=== PATIENT | male | born 1975 | race American Indian/Alaskan Native ===

== ENCOUNTER 2016-11-30 02:01 | Emergency (ER) | payer BC ==
[2016-11-30 03:05] LABS: Basophils % (Auto) 0.6 % (0.0-1.8); Eosinophils % (Auto) 6.4 % (0.0-4.3); Hematocrit 40.9 % (35.5-45.6); Hemoglobin 13.7 gm/dl (11.8-15.2); Mean Corpuscular HGB Conc 34 % (32-34); Mean Corpuscular Hemoglobin 29 pg (28-32); Mean Corpuscular Volume 86 fl (84-94); Platelet Count 223 K/mm3 (140-440); Red Blood Count 4.75 M/mm3 (3.65-5.03); Red Cell Distribution Width 14.1 % (13.2-15.2); White Blood Count 9.4 K/mm3 (4.5-11.0)
[2016-11-30 03:21] LABS: Alanine Aminotransferase 23 units/L (7-56); Albumin 4.1 g/dL (3.9-5); Albumin/Globulin Ratio 1.5 %; Alkaline Phosphatase 84 units/L (35-129); Anion Gap 17 mmol/L; BUN/Creatinine Ratio 13; Blood Urea Nitrogen 13 mg/dL (9-20); Calcium 9.3 mg/dL (8.4-10.2); Carbon Dioxide 26 mmol/L (22-30); Chloride 102.9 mmol/L (98-107); Glucose 108 mg/dL (75-100); Potassium 4.1 mmol/L (3.6-5.0); Sodium 142 mmol/L (137-145); Total Protein 6.9 g/dL (6.3-8.2)
[2016-11-30 06:19] VITALS: BP 118/78
--- NOTE | 2016-11-30 07:11 | Emergency Department Report ---
ED General Adult HPI - General Chief complaint: Dizziness Stated complaint: HIGH BLOOD PRESSURE Time Seen by Provider: 11/30/16 07:02 Source: patient, RN notes reviewed Mode of arrival: Ambulatory Limitations: No Limitations - History of Present Illness Initial comments: This is a 41-year-old male was previously unknown to this provider. He has no chronic medical conditions that he is aware of, this primary care doctor. He presents to the ER with a complaint of dizziness. The dizziness has been present for a few weeks. He describes it as a sensation of lightheadedness, and a "whoosing" sensation when he gets up rapidly from a sitting position. This has been going on for 2-3 weeks. There is no headache, neck pain, chest pain, abdominal pain or shortness of breath. There is no tinnitus or vertigo. No change in auditory acuity. There is no leg pain, there is no leg swelling, no recent trips grade 4 hours, and no recent hospital admissions. The patient endorses poor sleep hygiene, patient admits to working 16 and 17 hour days, he reports that he is quite physically active, plays a lot of basketball, and has no change in exercise tolerance. -: Gradual, week(s) Consistency: intermittent Improves with: rest Worsens with: movement Associated Symptoms: malaise. denies: confusion, chest pain, cough, diaphoresis , fever/chills, headaches, loss of appetite, shortness of breath - Related Data Previous Rx's Medication Instructions Recorded Last Taken Type Acetaminophen/Codeine [Tylenol #3] 1 tab PO Q6H PRN #15 tab 06/19/15 Unknown Rx Ibuprofen [Motrin] 600 mg PO Q8H PRN #40 tablet 06/19/15 Unknown Rx Prednisone [predniSONE 10 mg 10 mg PO .TAPER #1 tab.ds.pk 06/19/15 Unknown Rx (6-Day Pack, 21 Tabs)] Allergies Allergy/AdvReac Type Severity Reaction Status Date / Time No Known Allergies Allergy Unverified 06/18/15 23:40 ED Review of Systems ROS: Stated complaint: HIGH BLOOD PRESSURE Other details as noted in HPI Constitutional: denies: fever Eyes: denies: eye pain, eye discharge, vision change ENT: denies: ear pain, throat pain, dental pain, hearing loss, epistaxis, congestion Respiratory: denies: cough, shortness of breath, wheezing Cardiovascular: denies: chest pain Gastrointestinal: denies: abdominal pain Genitourinary: denies: dysuria Musculoskeletal: denies: back pain Skin: denies: lesions Neurological: denies: weakness Psychiatric: anxiety ED Past Medical Hx - Past Medical History Previous Medical History?: No - Surgical History Past Surgical History?: No - Social History Smoking Status: Never Smoker - Medications Home Medications: Home Medications Medication Instructions Recorded Confirmed Last Taken Type Acetaminophen/Codeine [Tylenol #3] 1 tab PO Q6H PRN #15 tab 06/19/15 Unknown Rx Ibuprofen [Motrin] 600 mg PO Q8H PRN #40 tablet 06/19/15 Unknown Rx Prednisone [predniSONE 10 mg 10 mg PO .TAPER #1 tab.ds.pk 06/19/15 Unknown Rx (6-Day Pack, 21 Tabs)] ED Physical Exam - General Limitations: No Limitations General appearance: alert, in no apparent distress - Head Head exam: Present: atraumatic, normocephalic - Eye Eye exam: Present: normal appearance, PERRL, EOMI, other (visual acuity intact to finger counting, color perception, reading at a close distance). Absent: nystagmus - ENT ENT exam: Present: normal exam, normal orophraynx, mucous membranes moist, TM's normal bilaterally, normal external ear exam - Neck Neck exam: Present: normal inspection, full ROM. Absent: tenderness, meningismus - Respiratory Respiratory exam: Present: normal lung sounds bilaterally. Absent: respiratory distress, wheezes, rales, rhonchi, stridor, chest wall tenderness, accessory muscle use, decreased breath sounds, prolonged expiratory - Cardiovascular Cardiovascular Exam: Present: regular rate, normal rhythm, normal heart sounds. Absent: bradycardia, tachycardia, irregular rhythm, systolic murmur, diastolic murmur, rubs, gallop - GI/Abdominal GI/Abdominal exam: Present: soft, normal bowel sounds. Absent: distended, tenderness, guarding, rebound, pulsatile mass - Rectal Rectal exam: Present: deferred - Extremities Exam Extremities exam: Present: normal inspection, full ROM, normal capillary refill. Absent: pedal edema, joint swelling, calf tenderness - Back Exam Back exam: Present: normal inspection, full ROM. Absent: tenderness, CVA tenderness (R), CVA tenderness (L), muscle spasm, paraspinal tenderness, vertebral tenderness - Neurological Exam Neurological exam: Present: alert, oriented X3, normal gait (normal gait, no past pointing, normal [id number], negative pronator drift, normal gait, normal tandem gait), other (Extraocular movements intact. Tongue midline. No facial droop. Facial sensation intact to light touch in the V1, V2, V3 distribution bilaterally. 5 and 5 strength in 4 extremities.. Sensation is intact to light touch in 4 extremities.). Absent: motor sensory deficit - Psychiatric Psychiatric exam: Present: anxious - Skin Skin exam: Present: warm, dry, intact, normal color. Absent: rash ED Course Vital Signs 11/30/16 11/30/16 02:10 06:18 Temperature 98.4 F 97.7 F Pulse Rate 86 53 L Respiratory 17 18 Rate Blood Pressure 141/88 Blood Pressure 118/78 [Left] O2 Sat by Pulse 99 98 Oximetry ED Medical Decision Making - Lab Data Result diagrams: 11/30/16 02:38 11/30/16 02:38 - EKG Data -: EKG Interpreted by Co EKG shows normal: sinus rhythm, axis, intervals, QRS complexes, ST-T waves - EKG Data When compared to previous EKG there are: previous EKG unavailable (`) 11/30/16 07:15 Sinus, 74 bpm, normal intervals, normal axis, high left ventricular voltage, not morphologically consistent with STEMI. 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 The patient is afebrile with reassuring vital signs, walks with a steady gait, has no cerebellar signs, GCS of 15, NIH score of 0, somewhat anxious, clinically sober at this time. Very unlikely to be any emergent or dangerous pathology at this time, patient is provided reassurance and instructions to pursue a better work life balance, including proper sleep hygiene, with 7-8 hours of sleep per day. A troponin was sent prior to my evaluation, I have a very low suspicion for acute coronary syndrome, and as per the [employer] clinical policy, myocardial infarction may be excluded with once of troponins if symptoms have been present for greater than 8 hours. Critical care attestation.: If time is entered above; I have spent that time in minutes in the direct care of this critically ill patient, excluding procedure time. ED Disposition Clinical Impression: Dizziness Disposition: DC-01 TO HOME OR SELFCARE Is pt being admited?: No Does the pt Need Aspirin: No Condition: Stable Instructions: Snoring (ED) Additional Instructions: Follow-up with a primary care doctor for routine health maintenance within the next 4-6 weeks. Symptoms most likely coming from inadequate sleep, and poor sleep hygiene. Make certain to get 7 or 8 hours of uninterrupted sleep each night, use blackout curtains in the morning/as necessary, avoid consumption of caffeinated substances and stimulants, and make certain to exercise properly and eats a balanced diet. Return to the ER by dilute fevers, chills, chest pain, shortness of breath, intractable nausea or vomiting, confusion, inability to tolerate liquid feeds. Referrals: PRIMARY MD SANDEEP [Primary Care Provider] - 3-5 Days ONELIA PARKER MD [Staff Physician] - 3-5 Days [facility] [Provider Group] - 3-5 Days
== END 2016-11-30 07:41 | disposition home or self-care (01) ==
LOC: ED 02:01
DX: R42 Dizziness and giddiness (principal)
CPT/HCPCS: 36415; 80053; 84484; 85025; 93005; 93010; 99283

== ENCOUNTER 2020-08-21 11:24 | Emergency (ER) | payer SELFPAY ==
[2020-08-21 12:15] VITALS: BP 154/89
[2020-08-21 13:38] LABS: Basophils % (Auto) 0.2 % (0.0-1.8); Eosinophils # (Auto) 0.3 K/mm3 (0.0-0.4); Eosinophils % (Auto) 2.7 % (0.0-4.3); Hematocrit 41.7 % (35.5-45.6); Hemoglobin 14.3 gm/dl (11.8-15.2); Lymphocytes # (Auto) 1.5 K/mm3 (1.2-5.4); Lymphocytes % (Auto) 14.2 % (13.4-35.0); Mean Corpuscular HGB Conc 34 % (32-34); Mean Corpuscular Volume 88 fl (84-94); Monocytes # (Auto) 1.2 K/mm3 (0.0-0.8); Platelet Count 258 K/mm3 (140-440); Red Blood Count 4.75 M/mm3 (3.65-5.03); Red Cell Distribution Width 14.5 % (13.2-15.2)
[2020-08-21] MEDS ORDERED: KETOROLAC 30 MG/1 ML INJ IV ONE (14:01)
[2020-08-21] MEDS ORDERED: MORPHINE 4 MG/1 ML INJ IV ONE (14:01)
[2020-08-21] MEDS ORDERED: ONDANSETRON 4 MG/2 ML INJ IV ONE (14:02)
[2020-08-21 14:03] LABS: Alanine Aminotransferase 17 units/L (7-56); Albumin 4.3 g/dL (3.9-5); BUN/Creatinine Ratio 10; Blood Urea Nitrogen 15 mg/dL (9-20); Calcium 10.1 mg/dL (8.4-10.2); Hemolysis Index 7
--- NOTE | 2020-08-21 14:06 | Emergency Department Report ---
ED General Adult HPI - General Chief complaint: Abdominal Pain Stated complaint: BACK INJURY, VOMIT Time Seen by Provider: 08/21/20 13:21 Source: patient Mode of arrival: Ambulatory Limitations: No Limitations - History of Present Illness Initial comments: 45-year-old -[place] male patient without past medical history presents with complaints of right flank pain radiating down his right side to his right abdomen and right buttock x5 days. Patient states the pain started 1 day after catching a heavy item from falling. He denies any numbness/tingling/weakness in his limbs, difficulty with ambulation, loss of bladder/bowel control. He repo rts he has been constipated for 3 days because when he strains, his back hurts. He also reports 1 episode of vomiting yesterday, but denies any hematemesis/coffee-ground emesis, fever/chills/sweats, chest pain, shortness of breath, cough, or headache. He rates his current pain as a 10/10 in severity and states it worsens with range of motion. He does report dysuria and urinary frequency that began today, but denies any hematuria or history of kidney stones. No prior abdominal surgeries per patient. Severity scale (0 -10): 9 - Related Data Previous Rx's Medication Instructions Recorded Last Taken Type Acetaminophen/Codeine [Tylenol #3] 1 tab PO Q6H PRN #15 tab 06/19/15 Unknown Rx Ibuprofen [Motrin] 600 mg PO Q8H PRN #40 tablet 06/19/15 Unknown Rx Prednisone [predniSONE 10 mg 10 mg PO .TAPER #1 tab.ds.pk 06/19/15 Unknown Rx (6-Day Pack, 21 Tabs)] HYDROcodone/APAP 10-325 [[place] 1 each PO Q6HR PRN #15 tablet 08/21/20 Unknown Rx 10-325 mg TAB] Ondansetron [Zofran Odt] 4 mg PO Q8HR PRN #20 tab.rapdis 08/21/20 Unknown Rx Sulfamethoxazole/Trimethoprim 1 each PO BID 5 Days #10 tablet 08/21/20 Unknown Rx [Bactrim DS TAB] Tamsulosin [Flomax] 0.4 mg PO QDAY #5 cap 08/21/20 Unknown Rx Allergies Allergy/AdvReac Type Severity Reaction Status Date / Time No Known Allergies Allergy Unverified 06/18/15 23:40 ED Review of Systems ROS: Stated complaint: BACK INJURY, VOMIT Other details as noted in HPI Constitutional: denies: chills, fever, malaise, weakness Respiratory: denies: cough, shortness of breath Gastrointestinal: abdominal pain, nausea, vomiting, constipation. denies: diarrhea, hematemesis, melena Genitourinary: denies: urgency, dysuria, frequency, hematuria Musculoskeletal: back pain Skin: denies: change in color Neurological: denies: headache, weakness, numbness, paresthesias, abnormal gait Hematological/Lymphatic: denies: swollen glands ED Past Medical Hx - Past Medical History Previous Medical History?: Yes Hx Hypertension: Yes Hx Diabetes: Yes Additional medical history: Vit D deficiency - Surgical History Past Surgical History?: No - Social History Smoking Status: Current Every Day Smoker Substance Use Type: None - Medications Home Medications: Home Medications Medication Instructions Recorded Confirmed Last Taken Type Acetaminophen/Codeine [Tylenol #3] 1 tab PO Q6H PRN #15 tab 06/19/15 Unknown Rx Ibuprofen [Motrin] 600 mg PO Q8H PRN #40 tablet 06/19/15 Unknown Rx Prednisone [predniSONE 10 mg 10 mg PO .TAPER #1 tab.ds.pk 06/19/15 Unknown Rx (6-Day Pack, 21 Tabs)] HYDROcodone/APAP 10-325 [[place] 1 each PO Q6HR PRN #15 tablet 08/21/20 Unknown Rx 10-325 mg TAB] Ondansetron [Zofran Odt] 4 mg PO Q8HR PRN #20 tab.rapdis 08/21/20 Unknown Rx Sulfamethoxazole/Trimethoprim 1 each PO BID 5 Days #10 tablet 08/21/20 Unknown Rx [Bactrim DS TAB] Tamsulosin [Flomax] 0.4 mg PO QDAY #5 cap 08/21/20 Unknown Rx ED Physical Exam - General Limitations: No Limitations General appearance: alert, in no apparent distress - Head Head exam: Present: atraumatic, normocephalic - Eye Eye exam: Present: normal appearance - Respiratory Respiratory exam: Present: normal lung sounds bilaterally. Absent: respiratory distress - Cardiovascular Cardiovascular Exam: Present: regular rate, normal rhythm - GI/Abdominal GI/Abdominal exam: Present: soft, tenderness (Suprapubic, right flank), normal bowel sounds. Absent: distended, guarding, rebound, rigid - Back Exam Back exam: Present: full ROM, paraspinal tenderness (Right thoracic). Absent: vertebral tenderness - Expanded Back Exam Expanded Back exam: Absent: saddle anesthesia - Neurological Exam Neurological exam: Present: alert, oriented X3, normal gait - Expanded Neurological Exam Expanded Sensory exam: Lower Extremity Light Touch: Normal Motor strength exam: RLE: 5, LLE: 5 - Psychiatric Psychiatric exam: Present: normal affect, normal mood - Skin Skin exam: Present: warm, dry, intact, normal color. Absent: rash ED Course Vital Signs 08/21/20 08/21/20 08/21/20 12:14 13:09 14:25 Temperature 98.9 F 98.9 F Pulse Rate 84 84 Respiratory 20 20 16 Rate Blood Pressure 154/89 [Right] O2 Sat by Pulse 99 99 Oximetry 08/21/20 18:23 Temperature 98.9 F Pulse Rate 84 Respiratory 16 Rate Blood Pressure 154/89 [Right] O2 Sat by Pulse Oximetry ED Medical Decision Making - Lab Data Result diagrams: 08/21/20 13:02 08/21/20 13:02 Lab Results 08/21/20 08/21/20 08/21/20 Range/Units 13:02 13:02 14:32 WBC 10.4 (4.5-11.0) K/mm3 RBC 4.75 (3.65-5.03) M/mm3 Hgb 14.3 (11.8-15.2) gm/dl Hct 41.7 (35.5-45.6) % MCV 88 (84-94) fl MCH 30 (28-32) pg MCHC 34 (32-34) % RDW 14.5 (13.2-15.2) % Plt Count 258 (140-440) K/mm3 Lymph % (Auto) 14.2 (13.4-35.0) % Mobile % (Auto) 12.0 H (0.0-7.3) % Eos % (Auto) 2.7 (0.0-4.3) % Baso % (Auto) 0.2 (0.0-1.8) % Lymph # (Auto) 1.5 (1.2-5.4) K/mm3 Mobile # (Auto) 1.2 H (0.0-0.8) K/mm3 Eos # (Auto) 0.3 (0.0-0.4) K/mm3 Baso # (Auto) 0.0 (0.0-0.1) K/mm3 Seg Neutrophils % 70.9 H (40.0-70.0) % Seg Neutrophils # 7.4 (1.8-7.7) K/mm3 Sodium 138 (137-145) mmol/L Potassium 4.5 (3.6-5.0) mmol/L Chloride 99.2 (98-107) mmol/L Carbon Dioxide 26 (22-30) mmol/L Anion Gap 17 mmol/L BUN 15 (9-20) mg/dL Creatinine 1.5 H (0.8-1.3) mg/dL Estimated GFR > 60 ml/min BUN/Creatinine Ratio 10 % Glucose 90 (75-100) mg/dL Calcium 10.1 (8.4-10.2) mg/dL Total Bilirubin 0.50 (0.1-1.2) mg/dL AST 22 (5-40) units/L ALT 17 (7-56) units/L Alkaline Phosphatase 84 (35-129) units/L Total Protein 8.0 (6.3-8.2) g/dL Albumin 4.3 (3.9-5) g/dL Albumin/Globulin Ratio 1.2 % Lipase 16 (13-60) units/L Urine Color Yellow (Yellow) Urine Turbidity Clear (Clear) Urine pH 6.0 (5.0-7.0) Ur Specific [place] 1.015 (1.003-1.030) Urine Protein <15 mg/dl (Negative) mg/dL Urine Glucose (UA) Neg (Negative) mg/dL Urine Ketones 20 (Negative) mg/dL Urine Blood Mod (Negative) Urine Nitrite Neg (Negative) Ur Reducing Substances Not Reportable Urine Bilirubin Neg (Negative) Urine Ictotest Not Reportable Urine Urobilinogen < 2.0 (<2.0) mg/dL Ur Leukocyte Esterase Tr (Negative) Urine WBC (Auto) 11.0 H (0.0-6.0) /HPF Urine RBC (Auto) 14.0 (0.0-6.0) /HPF U Epithel Cells (Auto) < 1.0 (0-13.0) /HPF Urine Bacteria (Auto) 1+ (Negative) /HPF Urine Mucus Few /HPF - Radiology Data Radiology results: report reviewed CT ABDOMEN AND PELVIS WITHOUT CONTRAST INDICATION: right flank pain, abdominal pain, constipation CONTRAST: Without IV COMPARISON: None available. All CT scans at this location are performed using CT dose reduction for ALARA by means of automated exposure control. FINDINGS: Lung bases are clear. No pneumoperitoneum is seen. No free fluid is noted. No inflammatory changes are seen. No evidence of bowel obstruction is noted. Moderate amount of stool is seen in the colon suggesting constipation. Liquid stool with air-fluid levels are seen on the right colon without wall thickening and without dilatation. Bilateral small probable renal cysts are seen. Left adrenal shows a small nodule measuring approximately 11 mm with an internal density appearing to be -12 Hounsfield units consistent with a small benign adenoma. No other abdominal masses are seen. Gallbladder and bile ducts appear within normal limits. Minimal right and mild left nephrolithiasis is seen. Scattered small calculi are are noted in the left kidney measuring up to 4 mm, mostly in the upper to mid portions, and tiny punctate calculi are scattered in the right kidney. The right renal collecting system is mildly prominent as is the right ureter to the bladder. A 4 mm calculus is seen at the right ureterovesical junction. Left ureter appears within normal limits. Urinary bladder is poorly distended but shows no obvious abnormalities. Prostate and seminal vesicles appear within normal limits. IMPRESSION: 1. Mildly obstructing right ureteral vesicle junction calculus 2. Mild nephrolithiasis bilaterally 3. Evidence of constipation 4. Small left adrenal adenoma - Medical Decision Making 45-year-old -[place] male patient without past medical history presents with complaints of right flank pain radiating down his right side to his right abdomen and right buttock x5 days. Patient states the pain started 1 day after catching a heavy item from falling. He denies any numbness/tingling/weakness in his limbs, difficulty with ambulation, loss of bladder/bowel control. He reports he has been constipated for 3 days because when he strains, his back hurts. He also reports 1 episode of vomiting yesterday, but denies any hematemesis/coffee-ground emesis, fever/chills/sweats, chest pain, shortness of breath, cough, or headache. He rates his current pain as a 10/10 in severity and states it worsens with range of motion. He does report dysuria and urinary frequency that began today, but denies any hematuria or history of kidney stones. No prior abdominal surgeries per patient. He states he has not had a bowel movement in 3 days. Right CVA tenderness noted on exam. Given this and urinary symptoms, CT abdomen was performed and shows a 4 mm ureterovesical junction stone. Kidney function is normal. Patient's pain is controlled. He is still able to urinate without difficulty. Mildly elevated WBCs noted on UA, however CBC shows a normal white count. Patient given Rocephin to cover for infection and Cipro for home. His vitals are normal, he is well-appearing, he is stable for discharge home. Patient to follow-up with urology, referral provided. Discussed in great detail signs and symptoms that should prompt immediate return to the emergency department in detail with patient who verbalizes understanding. Critical care attestation.: If time is entered above; I have spent that time in minutes in the direct care of this critically ill patient, excluding procedure time. ED Disposition Clinical Impression: Right kidney stone, Renal adenoma, UTI (urinary tract infection) Disposition: DC-01 TO HOME OR SELFCARE Is pt being admited?: No Condition: Stable Instructions: Adrenal Adenoma, Kidney Stones, [id number], Urinary Tract Infection, Adult, [id number], Dietary Guidelines to Help Prevent Kidney Stones Prescriptions: Sulfamethoxazole/Trimethoprim [Bactrim DS TAB] 1 each PO BID 5 Days #10 tablet Tamsulosin [Flomax] 0.4 mg PO QDAY #5 cap HYDROcodone/APAP 10-325 [[place] 10-325 mg TAB] 1 each PO Q6HR PRN #15 tablet PRN Reason: Pain Ondansetron [Zofran Odt] 4 mg PO Q8HR PRN #20 tab.rapdis PRN Reason: Nausea Referrals: JOELLE GALVAN MD [Staff Physician] - 3-5 Days Forms: Work/School Release Form(ED)
[2020-08-21 14:51] LABS: Mucus,Urine FEW /HPF
[2020-08-21 15:50] LABS: Bacteria,Urine 1+ /HPF (Negative); Bilirubin,Urine NEG (Negative); Blood,Urine MOD (Negative); Color,Urine Yellow (Yellow); Protein,Urine <15 mg/dL mg/dL (Negative); Urobilinogen,Urine < 2.0 mg/dL (<2.0)
--- NOTE | 2020-08-21 16:26 | Cat Scan Report ---
CT ABDOMEN AND PELVIS WITHOUT CONTRAST INDICATION: right flank pain, abdominal pain, constipation CONTRAST: Without IV COMPARISON: None available. All CT scans at this location are performed using CT dose reduction for ALARA by means of automated e xposure control. FINDINGS: Lung bases are clear. No pneumoperitoneum is seen. No free fluid is noted. No inflammatory changes are seen. No evidence of bowel obstruction is noted. Moderate amount of stool is seen in the colon suggesting constipation. Liquid stool with air-fluid levels are seen on the right colon without wall thickening and without dilatation. Bilateral small probable renal cysts are seen. Left adrenal shows a small nodule measuring approximately 11 mm with an internal density appearing to be -12 Houns field units consistent with a small benign adenoma. No other abdominal masses are seen. Gallbladder a nd bile ducts appear within normal limits. Minimal right and mild left nephrolithiasis is seen. Scattered small calculi are are noted in the lef t kidney measuring up to 4 mm, mostly in the upper to mid portions, and tiny punctate calculi are sca ttered in the right kidney. The right renal collecting system is mildly prominent as is the right ure ter to the bladder. A 4 mm calculus is seen at the right ureterovesical junction. Left ureter appears within normal limits. Urinary bladder is poorly distended but shows no obvious abnormalities. Prosta te and seminal vesicles appear within normal limits. IMPRESSION: 1. Mildly obstructing right ureteral vesicle junction calculus 2. Mild nephrolithiasis bilaterally 3. Evidence of constipation 4. Small left adrenal adenoma Signer Name: Kal Cintron MD Signed: 08/21/2020 4:22 PM Workstation Name: [id number]
[2020-08-21] MEDS ORDERED: cefTRIAXone/NS 1 GM/50 ML 1 GM/50 ML BAG IV ONE (16:47)
[2020-08-21] MEDS ORDERED: SODIUM CHLORIDE 0.9% 1000 ML 1,000 ML IV ONE (16:47)
== END 2020-08-21 18:25 | disposition home or self-care (01) ==
LOC: ED 11:24
DX: D30.01 Benign neoplasm of right kidney (principal); N39.0 Urinary tract infection, site not specified; N20.0 Calculus of kidney; I10 Essential (primary) hypertension; E11.9 Type 2 diabetes mellitus without complications; F17.200 Nicotine dependence, unspecified, uncomplicated; Z79.899 Other long term (current) drug therapy; Z79.1 Long term (current) use of non-steroidal anti-inflammatories (NSAID)
CPT/HCPCS: 36415; 74176; 80053; 81001; 83690; 85025; 87086; 96365; 96375; 99284; J0696; J1885; J2270; J2405; J7030; 96361